=== PATIENT | male | born 1995 | race African-American/Black ===

== ENCOUNTER 2019-01-25 00:56 | Emergency (ER) | payer MEDICAID, OTHER ==
[~2019-01-25] VITALS: Ht 162.6 cm; Wt 64.0 kg
[2019-01-25 04:47] VITALS: BP 122/82
== END 2019-01-25 04:49 | disposition home or self-care (01) ==
LOC: ER 00:56
DX: F20.9 Schizophrenia, unspecified (principal)
CPT/HCPCS: 99283